=== PATIENT | female | born 1975 | race Two or more races ===

== ENCOUNTER → 2024-08-12 | Outpatient (CLI) | payer MEDICAID, SELFPAY ==
--- NOTE | 2024-08-12 10:30 | XR_ITS ---
Examination: Breast ultrasound complete, bilateral Date and time of exam: August 12, 2024 1051 hours INDICATIONS: Mammogram 11/14/2023 10 mm circumscribed nodule upper right breast 12 mm oval mass circumscribed upper outer left breast Technique: Real-time grayscale ultrasonographic imaging bilateral breasts, including all 4 quadrants as well as nipple retroareolar and axillary regions. Findings: Sonographic images right breast 6:00 circumscribed nodule 9 x 5 mm 6:00 cyst 8 x 7 mm 8:00 nodule lobular margins 11 x 9 mm 10:00 oval mass lobular margins 8 x 7 mm Sonographic images left breast 12:00 nodule circumscribed 9 x 9 mm 12:00 nodule circumscribed 12 x 11 mm 3:00 cyst 5 x 4 mm 4:00 cyst 6 x 4 mm Multiple additional smaller cysts IMPRESSION: BI-RADS Category 3: Probably benign findings One additional 6 month bilateral breast sonography follow-up strongly advised
--- NOTE | 2024-08-12 11:30 | XR_ITS ---
Examination: Diagnostic digital mammography, bilateral Computer aided detection 3-D breast Tomosynthesis, bilateral Date and time of exam: August 12, 2024 1128 hours INDICATIONS: Mammogram April 06, 2023 18 mm focal asymmetry upper outer right breast 14 mm circumscribed oval mass upper left breast Technique: Nonmagnified MLO, CC views of the breasts to been obtained, reconstructed from 3-D Tomosynthesis images. R2 computer aided detection program utilized for evaluation of suspicious masses and/or abnormal calcifications. 3-D Tomosynthesis images obtained. Findings: The breasts are heterogeneously dense, which may obscure small masses Focal asymmetry remains upper outer right breast anterior depth 10 mm circumscribed nodule 12:00 position left breast Impression: BI-RADS Category 3: Probably benign findings Recommend 6 month continued bilateral mammography follow-up.
== END | disposition home or self-care (01) ==
PROVIDERS: PCP Physician Assistant Medical; Referring Provider Advanced Practice Midwife; Visit Provider Advanced Practice Midwife
DX: N60.01 Solitary cyst of right breast (principal); N60.12 Diffuse cystic mastopathy of left breast; N63.11 Unspecified lump in the right breast, upper outer quadrant; N63.25 Unspecified lump in the left breast, overlapping quadrants; N63.15 Unspecified lump in the right breast, overlapping quadrants; R92.333 Mammographic heterogeneous density, bilateral breasts
CPT/HCPCS: 76641; 77062; 77066; G0279